=== PATIENT | female | born 1955 | race Caucasian/White ===

== ENCOUNTER 2016-09-04 19:54 | Emergency (ER) | payer MEDICAID ==
[2016-09-04 20:52] LABS: BASOPHILS 0.5 % (0-2); EOSINOPHILS 2.7 % (0-7); HEMATOCRIT 35.3 % (36.0-48.0); HEMOGLOBIN 11.6 g/dL (12-16); IMMATURE GRANULOCYTES 0.2 % (0-5); LYMPHOCYTES 33.5 % (15-50); MCH 31.7 pg (26.0-34.0); MCHC 32.9 g/dL (31.0-37.0); MCV 96.4 fL (80.0-100.0); MEAN PLATELET VOLUME 9.8 fL (7.4-10.4); MONOCYTES 6.1 % (2-11); PLATELET COUNT 242 10x3/uL (130-400); RBC 3.66 10x6/uL (4.00-5.40); RDW 12.9 % (11.5-14.5); WBC 6.3 10x3/uL (4.8-10.8)
[2016-09-04 21:11] LABS: APTT 28.5 SECONDS (22.8-39.4); INR 0.99 (0.85-1.17)
[2016-09-04 21:16] LABS: ALBUMIN 3.3 g/dL (3.4-5.0); ALKALINE PHOSPHATASE 61 U/L (46-116); ALT (SGPT) 19 U/L (10-68); BILIRUBIN - TOTAL 0.21 mg/dL (0.2-1.3); CALC OSMOLALITY 283 mosm/kg (275-300); CALCIUM 8.7 mg/dL (8.5-10.1); CARBON DIOXIDE 30.8 mmol/L (21.0-32.0); CHLORIDE - SERUM 105 mmol/L (98-107); GLUCOSE 103 mg/dL (74-106); POTASSIUM - SERUM 4.2 mmol/L (3.5-5.1); PROTEIN - SERUM 6.4 g/dL (6.4-8.2); SODIUM 142 mmol/L (136-145); UREA NITROGEN 15 mg/dL (7-18); eGFR NON AFRICAN AMERICAN 59 mL/min (90-120)
[2016-09-04 21:19] LABS: CREATINE KINASE 72 UL (21-215)
[2016-09-04 21:22] LABS: TROPONIN-I < 0.017 ng/mL (0.000-0.060)
== END 2016-09-04 23:30 | disposition home or self-care (01) ==
LOC: D.ER 19:54
PROVIDERS: Family Medicine
DX: S71.112A Laceration without foreign body, left thigh, initial encounter (principal); X58.XXXA Exposure to other specified factors, initial encounter; Y93.89 Activity, other specified; Y92.89 Other specified places as the place of occurrence of the external cause; I10 Essential (primary) hypertension

== ENCOUNTER 2016-09-24 21:39 | Emergency (ER) | payer MEDICAID | END 2016-09-25 01:18 | disposition home or self-care (01) | LOC: D.ER 21:39 | DX: S81.811A Laceration without foreign body, right lower leg, initial encounter (principal); S41.112A Laceration without foreign body of left upper arm, initial encounter; W20.8XXA Other cause of strike by thrown, projected or falling object, initial encounter; Y93.89 Activity, other specified; Y92.019 Unspecified place in single-family (private) house as the place of occurrence of the external cause; I10 Essential (primary) hypertension ==

== ENCOUNTER 2018-04-17 11:45 | Outpatient (CLI) | payer MEDICAID | END 2018-04-17 12:30 | disposition home or self-care (01) | LOC: D.CATH 11:45 | DX: I48.91 Unspecified atrial fibrillation (principal); Z53.9 Procedure and treatment not carried out, unspecified reason; Z01.812 Encounter for preprocedural laboratory examination ==

== ENCOUNTER 2018-05-06 08:00 | Outpatient (CLI) | payer MEDICAID | END 2018-05-06 09:00 | disposition home or self-care (01) | LOC: D.MAMMO 08:00 | DX: Z12.31 Encounter for screening mammogram for malignant neoplasm of breast (principal) ==

== ENCOUNTER 2018-06-03 08:00 | Outpatient (CLI) | payer MEDICAID | END 2018-06-03 09:00 | disposition home or self-care (01) | LOC: D.MAMMO 08:00 | DX: R92.8 Other abnormal and inconclusive findings on diagnostic imaging of breast (principal) ==

== ENCOUNTER 2018-12-17 14:00 | Outpatient (CLI) | payer OTHER, MEDICAID | END 2018-12-17 14:30 | disposition home or self-care (01) | LOC: D.MAMMO 14:00 | PROVIDERS: ATTEND Family Medicine | DX: R92.8 Other abnormal and inconclusive findings on diagnostic imaging of breast (principal) ==

== ENCOUNTER → 2018-12-30 07:37 | Outpatient (CLI) | payer OTHER, MEDICAID | END | disposition home or self-care (01) | LOC: D.MRI 07:37 | PROVIDERS: ATTEND Family Medicine | DX: N28.89 Other specified disorders of kidney and ureter (principal) ==

== ENCOUNTER → 2019-03-28 11:28 | Outpatient (CLI) | payer OTHER ==
--- NOTE | 2019-04-01 08:49 | EC ---
PATIENT:THERESA SEO DATE OF SERVICE: 03/28/19 SEX: F MEDICAL RECORD: [id number] DATE OF : 51 LOCATION:[facility] AGE OF PATIENT: 63 ADMISSION DATE: 03/28/19 REFERRING PHYSICIAN: INTERPRETING PHYSICIAN: JASMYN AZEVEDO MD ECHOCARDIOGRAM REPORT ECHO CHARGES 4 ECHO COMPLETE Date: 03/28/19 CLINICAL DIAGNOSIS: HEART MURMUR ECHOCARDIOGRAPHIC MEASUREMENTS (adult normal given) AC root (d.<3.7cm) 3.7 cm LV Septum d (<1.2 cm> 1.3 cm Valve Excursion 1.5 cm LV Septum (systole) 1.6 cm Left Atria (s.<4.0cm> 3.6 cm LVPW d(<1.2cm) 1.4 cm RV (d.<2.3cm) 3.4 cm LVPW (sytole) 1.8 cm LV diastole(<5.6CM) 4.7 cm MV E-F(>70mm/sec) cm LV systole 2.5 cm LVOT Diameter 1.9 cm MV exc.(>10mm) 1.7 cm Est.ejection fraction (50-75%) % DOPPLER: LVIT cm/sec A 66.0 cm/sec E 79.0 cm/sec LA cm/sec RVSP 35 mmHg LVOT 88 cm/sec AOP1/2T m/s Asc. Ao 105 cm/sec RVOT 73 cm/sec RA cm/sec PA 114 cm/sec AV Gradient Peak 4.37 mmHg AV Mean 2.29 mmHg AV Area 2.5 cm MV Gradient Peak 3.37 mmHg MV Mean 1.18 mmHg MV Area cm COMMENTS: Learning And Development Assistant: 2 TERESO MURPHY Financial Director: 3 Dr. Chaney TAPE# PACS Pericardial Effusion N DATE OF SERVICE: Adequate 2D, color flow imaging, spectral Doppler, and M-Mode LVH is present. LV internal dimension is normal. Wall motion is normal. EF is greater than or equal to 55%. Aortic valve is tricuspid. There is no evidence of stenosis by Doppler interrogation. Left atrium is normal at 3.6 cm. Mitral valve shows no prolapse. Trace MR. Right-sided chambers are grossly normal. Trace TR. ECHOCARDIOGRAM REPORT [id number] THERESA SEO TRANSINT:[id number] Voice Confirmation ID: [id number] DOCUMENT ID: [id number] JASMYN AZEVEDO MD at 0849 CC: [id number] DICTATION DATE: 03/29/19 1026 TELEPHONE INTERCEPTOR OPERATOR: 03/29/19 1139 DEP CLI 03/28/19 [place] [id number] [place] [id number]
== END | disposition home or self-care (01) ==
LOC: D.HCCECHO 11:28
PROVIDERS: ATTEND Internal Medicine Interventional Cardiology
DX: R01.1 Cardiac murmur, unspecified (principal)

== ENCOUNTER → 2019-04-07 08:26 | Outpatient (CLI) | payer OTHER ==
--- NOTE | ~2019-04-07 | ST ---
PATIENT:THERESA SEO MEDICAL RECORD: [id number] SEX: F LOCATION:[facility] ORDER #: ADMISSION DATE: 04/07/19 AGE OF PATIENT: 63 REFERRING PHYSICIAN: INTERPRETING PHYSICIAN: ELY OWUSU MD DATE OF SERVICE: 04/07/2019 PROCEDURE: Nuclear stress test. INDICATION: Angina, hypertension, hyperlipidemia, shortness of breath. She was exercised on standard Lexiscan protocol with 33 mCi of sestamibi injected at peak stress, 11 mCi used previously for rest images. FINDINGS: Gated SPECT reveals decreased ejection fraction at 45% with decreased thickening and brightening throughout the apical segment. SPECT imaging: Cardiolite was used as myocardial perfusion agent. There is a fixed perfusion defect at the apex compatible with previous apical myocardial infarction; however, there is reversible ischemia anteriorly. This includes the basal, mid, apical anterior segments. The degree of reversibility is moderate. The amount of myocardium involved between the defect is large. OVERALL IMPRESSION: This is an intermediate risk abnormal nuclear stress test. Reversible ischemia anteriorly. Fixed perfusion defect apically suggestive of hemodynamically significant coronary artery disease. TRANSINT:[id number] Voice Confirmation ID: [id number] DOCUMENT ID: [id number] ELY OWUSU MD CC: [id number] DICTATION DATE: 04/09/19 1605 CLEANER WALL: 04/10/19 0657 [facility] CLI 04/07/19 [facility] [address] [place] [address]
== END | disposition home or self-care (01) ==
LOC: D.HCCARDIO 03-31 10:00
PROVIDERS: ATTEND Internal Medicine Interventional Cardiology
DX: I20.9 Angina pectoris, unspecified (principal)

== ENCOUNTER 2019-04-17 11:25 | Outpatient (CLI) | payer OTHER ==
[~2019-04-17] VITALS: Ht 157.5 cm; Wt 54.5 kg
--- NOTE | ~2019-04-17 | HEMODYNAMI ---
PATIENT:THERESA SEO MEDICAL RECORD: [id number] : 51 [facility] ADMISSION DATE: 04/17/19 Generatedon:04/17/201914:33 Patient name: THERESA SEO Patient #: [id number] SSN: [id number] : 1955 Date of study: 04/17/2019 Page: Of Hemodynamic Procedure Report Patient Data Patient Demographics Procedure consent was obtained First Name: THERESA Gender: Female Last Name: RAYRAY : 1955 Middle Initial: BARON Age: 63 year(s) Patient #: [id number] Race: Unknown SSN: [id number] Additional ID: [id number] Contact details Address: [address] [place] [address] State: [place] City: [facility] Zip code: [address] Past Medical History Allergies: No known allergies Admission Admission Data Admission Date: 04/17/2019 Admission Time: 11:25 Arrival Date: 04/17/2019 Arrival Time: 0:00 Admit Source: Other Insurance Payor: Medicare [facility] #: [id number] Height (in.): 62 BSA: 1.55 (m2) Height (cm.): 157.48 BMI: 22.31 (kg/m2) Weight (lbs.): 122 Weight (kg.): 55.34 Lab Results Lab Result Date: 04/17/2019 Lab Result Time: 0:00 Biochemistry Name Units Result Min Max Creatinine mg/dl 1.1 --(--*-)-- 0.6 1.3 eGFR ml/min 53 *-(----)-- 90 120 NONAFRICAN CBC Name Units Result Min Max Hematocrit % 40.3 -*(----)-- 42 54 Hemoglobin g/dl 13.2 -*(----)-- 13.5 17.5 Procedure Procedure Types Cath Procedure Diagnostic Procedure LHC LHC w/Coronaries Sedation Charges Moderate Sedation up to 15 minutes Procedure Description Procedure Date Procedure Date: 04/17/2019 Procedure Start Time: 14:17 Procedure End Time: 14:31 Procedure Staff Name Function Jorge Asher MD Performing Physician Aleyda Burton RT Monitor Jo Jacinto RT Scrub Eduar Marinelli RN Nurse Procedure Data Cath Procedure Fluoroscopy Diagnostic fluoroscopy Total fluoroscopy Time: 1.5 time: 1.5 min min Diagnostic fluoroscopy Total fluoroscopy dose: 723 dose: 723 mGy mGy Contrast Material Contrast Material Type Amount (ml) Isovue 300 48 Entry Location Entry Primary Successful Side Size Upsize Upsize Entry Closure Succes sful Closure Location (Fr) 1 (Fr) 2 (Fr) Remarks Device Remarks Femoral Right 5 Fr Exoseal artery Estimated blood loss: 10 ml Diagnostic catheters Device Type Used For End Catheter Placement MULTIPACK JL 4.0 5Fr Procedure catheter MULTIPACK 3DRC 5Fr Procedure catheter MULTIPACK Pigtail 5 Fr Ventriculography catheter Procedure Complications No complications Procedure Medications Medication Administration Route Dosage 0.9% NaCl I.V. 100 ml/hr Oxygen etCO2 Nasal cannula 2 l/min Heparin Flush Bag added to field 2 bags (1000units/500ml NS) Lidocaine 2% added to field 20 Radial Cocktail added to field 1 syringe (Verapamil 2mg/Nitro 400mcg/Heparin 1500units) Versed I.V. 1 mg Fentanyl I.V. 50 mcg Versed I.V. 1 mg Fentanyl I.V. 50 mcg Hemodynamics Rest BSA: 1.55 (m2) HGB: 13.2 (g/dl) O2 Consumption: Estimated: 130.43 (ml/min) O2 Co nsumption indexed: Estimated:84.15 (ml/min/m) Heart Rate: 45 (bpm) Pressure Samples Time Site Value (mmHg) Purpose Heart Use Rate(bpm) 14:28 LV 111/14,12 Snapshot 88 14:28 AO 111/65(84) Pullback 82 Gradients Valve Time Site Site 2 Mean SEP/DFP Peak To Heart Use 1 (mmHg) (sec/min) Peak Rate (mmHg) (bpm) Aortic 14:28 LV AO 6 10 82 111/65(84) Calculations Valve P-P Mean Valve Index Valve Source Name Gradient Area Flow (cm2) Aortic 6 6 Snapshots Pre Cath Intra NCS Post Cath Vital Signs Time Heart Resp SPO2 etCO2 NIBP (mmHg) Rhythm Pain Sedation Rate (ipm) (%) (mmHg) Status Level (bpm) 13:50:21 44 17 91 0 140/86(115) NSR 0 (11) 10(A) , No pain 13:54:33 80 17 88 0 138/90(111) NSR 0 (11) 10(A) , No pain 13:58:47 79 15 88 0 134/83(110) NSR 0 (11) 10(A) , No pain 14:02:58 79 16 89 0 127/82(105) NSR 0 (11) 10(A) , No pain 14:07:06 81 27 88 0 131/85(102) NSR 0 (11) 10(A) , No pain 14:11:14 84 13 94 33.9 129/84(107) NSR 0 (11) 10(A) , No pain 14:15:24 83 12 93 35.4 123/74(103) NSR 0 (11) 10(A) , No pain 14:19:32 79 17 94 34.6 116/75(90) NSR 0 (11) 9(A) , No pain 14:23:40 78 20 93 28.6 106/64(88) NSR 0 (11) 9(A) , No pain 14:27:42 84 15 92 39.9 111/69(88) NSR 0 (11) 10(A) , No pain 14:31:45 82 10 93 39.2 110/73(89) NSR 0 (11) 10(A) , No pain Medications Time Medication Route Dose Verified Delivered Reason Notes E ffectiveness by by 14:09:56 0.9% NaCl I.V. 100 Eduar Eduar Per ml/hr Yves Marinelli physician RN RN 14:10:05 Oxygen etCO2 2 l/min Eduar Eduar for low 02 Nasal Lorigan Lorigan sats cannula RN RN 14:10:19 Heparin Flush added 2 bags Eduar Eduar used for Bag to Lorigan Yves procedure (1000units/500ml field RN RN NS) 14:10:36 Lidocaine 2% added 20ml Eduar Eduar for local to vial Lorigan Lorigan anesthetic field RN RN 14:10:56 Radial Cocktail added 1 Eduar Eduar used for (Verapamil to syringe Lorigan Lorigan procedure 2mg/Nitro field RN RN 400mcg/Heparin 1500units) 14:18:11 Versed I.V. 1 mg Eduar Eduar for Lorigan Lorigan sedation RN RN 14:18:21 Fentanyl I.V. 50 mcg Eduar Eduar for Lorigan Lorigan sedation RN RN 14:23:13 Versed I.V. 1 mg Eduar Deuar for Lorigan Lorigan sedation RN RN 14:23:19 Fentanyl I.V. 50 mcg Eduar Eduar for Lorigan Lorigan sedation RN car wash supervisor Log Time Note 12:19:03 Arrival Date: 04/17/2019 12:00:00 AM 12:19:18 Admit Source: Other 12:19:24 Insurance Payor : Medicare 13:25:58 Procedure Status Elective Heart Cath (OP). 13:25:59 Aleyda Burton RT(R) sent for patient. Start room use. 13:26:00 Time tracking: Regular hours (M-F 7:00 - 5:00) 13:26:03 Plan of Care:Hemodynamics will remain stable., Cardiac rhythm will remain stable., Comfort level will be maintained., Respiratory function will remain adequate., Patient/ family verbilizes understanding of procedure., Procedure tolerated without complication., Recovers from procedure without complications.. 13:26:05 Signed procedure consent form obtained from patient. 13:26:33 H&P Date Dictated: 03/20/2019 Within 30 days and on chart., H&P Addendum completed by physician on day of procedure. (MUST COMPLETE FOR ALL OUTPATIENTS). 13:26:38 Patient allergic to No known allergies 13:26:52 Patient Weight : 122 lbs 13:26:56 Patient Height : 62 inches 13:28:16 Lab Result : Creatinine 1.1 mg/dl 13:28:16 Lab Result : eGFR NONAFRICAN 53 ml/min 13:28:16 Lab Result : Hemoglobin 13.2 g/dl 13:28:16 Lab Result : Hematocrit 40.3 % 13:32:00 Risk of Mortality: .8 13:32:03 Risk of blood transfusion: .9 13:32:06 Risk of ISABELLA: 1.8 13:32:21 Patient received from Pre/Post Procedure Room to [facility] 3 Alert and oriented. Tansferred to table in Supine position. 13:32:21 Warm blankets applied, and miranda hugger turned on for patient comfort. 13:32:22 Correct patient and procedure confirmed by team. 13:32:22 ECG and BP/O2 sat monitors applied to patient. 13:49:06 Vital chart was started 13:49:08 Baseline sample Acquired. 13:49:14 Rhythm: sinus rhythm 13:49:16 Full Disclosure recording started 13:49:17 Pre-procedure instructions explained to patient. 13:49:23 Family in waiting room. 13:49:25 Patient NPO since Midnight. 13:49:28 Was the patient premedicated? Yes 13:49:32 Is patient on blood thinner?No 13:49:36 Patient diabetic? No. 13:49:50 Snore? Yes 13:49:56 Sleep apnea? No 13:50:12 Airway obstruction? Yes COPD, Emphazema 13:50:16 Dentures? No ? 13:50:22 Patient pain scale 0/10 ?. 13:50:31 IV patent on arrival in left hand with 0.9% NaCl at O. 13:51:05 Lab results completed and on chart. 13:51:47 Stress Test: yes; N/A ? 13:51:51 Right Radial & Right Groin area was prepped with chlora-prep and draped in sterile fashion 13:51:52 Alarms reviewed by R. N. 13:51:53 Sharps counted by scrub and verified by R.N. 13:51:55 Physician paged 13:56:09 Physician arrived 14:02:11 Zero performed for pressure channel P1 14:09:24 3a) 45-59 Moderately reduced kidney function. 14:09:28 --------ALL STOP TIME OUT------ 14:09:29 Final Timeout: patient, procedure, and site verified with staff and physician. All members of the team are in agreement. 14:09:38 Right Radial & Right Groin site verified by team. 14:09:42 Fire Safety Assessment: A--An alcohol-based skin anteseptic being used preoperatively., C--Open oxygen or nitrous oxide is being used., D--An ESU, laser, or fiber-optic light is being used. 14:09:47 Physical assessment completed. ASA score P 3 - A patient with severe systemic disease as per Jorge Asher MD. 14:09:56 0.9% NaCl 100 ml/hr I.V. was administered by Eduar Marinelli RN; Per physician; Verbal order read back and verified. 14:10:05 Oxygen 2 l/min etCO2 Nasal cannula was administered by Eduar Marinelli RN; for low 02 sats; Verbal order read back and verified. 14:10:19 Heparin Flush Bag (1000units/500ml NS) 2 bags added to field was administered by Eduar Marinelli RN; used for procedure; Verbal order read back and verified. 14:10:26 Maximum allowable contrast dose (3.7 X eGFR X 0.75)147 ml. 14:10:32 Sedation plan: IV Moderate Sedation Medication:Versed, Fentanyl 14:10:36 Lidocaine 2% 20ml vial added to field was administered by Eduar Marinelli RN; for local anesthetic; Verbal order read back and verified. 14:10:38 Use device set Radial Dx or PCI 14:10:41 ACIST Syringe (73812) opened to sterile field. 14:10:41 Medline Cath Pack ([id number]) opened to sterile field. 14:10:42 Bag Decanter (2002S) opened to sterile field. 14:10:42 ACIST Hand Control (03451) opened to sterile field. 14:10:43 ACIST Manifold (59733) opened to sterile field. 14:10:44 Tegaderm 4 x 4 (1626W) opened to sterile field. 14:10:50 MBrace Wrist Support (000712179) opened to sterile field. 14:10:56 Radial Cocktail (Verapamil 2mg/Nitro 400mcg/Heparin 1500units) 1 syringe added to field was administered by Eduar Marinelli RN; used for procedure; Verbal order read back and verified. 14:11:02 MONICOALD Guide Wire (586-102) opened to sterile field. 14:16:51 Procedure started. 14:17:15 Local anesthetic to right radial artery with Lidocaine 2% by Jorge Asher MD.INITIAL ACCESS ONLY 14:18:11 Versed 1 mg I.V. was administered by Eduar Marinelli RN; for sedation; Verbal order read back and verified. 14:18:21 Fentanyl 50 mcg I.V. was administered by Eduar Marinelli RN; for sedation; Verbal order read back and verified. 14:23:13 Versed 1 mg I.V. was administered by Eduar Marinelli RN; for sedation; Verbal order read back and verified. 14:23:19 Fentanyl 50 mcg I.V. was administered by Eduar Marinelli RN; for sedation; Verbal order read back and verified. 14:23:21 A 5 Fr sheath was inserted into the Right Femoral artery 14:24:17 J wire advanced. 14:24:32 A MULTIPACK JL 4.0 5Fr catheter was advanced over the wire and used for Procedure. 14:24:33 DIAGNOSTIC Multipack 5Fr catheter set (OP1692) opened to sterile field. 14:25:18 LCA angiography performed. 14:26:49 Catheter removed. 14::58 A MULTIPACK 3DRC 5Fr catheter was advanced over the wire and used for Procedure. 14:27:09 RCA angiography performed. 14:27:13 Catheter removed. 14:27:27 A MULTIPACK Pigtail 5 Fr catheter was advanced over the wire and used for Ventriculography. 14:27:38 LV gram done using DUMONT 14::47 EF : 55 % 14:28:48 LV hemodynamics recorded. 14:28:49 Catheter removed. 14:29:18 EXOSEAL 5Fr (EX500) opened to sterile field. 14:29:31 Sheath removed intact; hemostasis achieved with Exoseal to the Right Femoral artery. 14:29:35 Procedure ended.(Physican Out) 14:29:47 Fluoroscopy time 01.50 minutes. 14:29:56 Fluoroscopy dose: 723 mGy 14:29:56 Flurop Dose total: 723 14:30:08 Dose Area Product 91 mGy/cm. 14:30:25 Contrast amount:Isovue 300 48ml. 14:30:28 Maximum allowable dose exceeded? No. 14:30:29 Sharps counted by scrub and verified by R.N. 14:30:32 Reno band inflated with 10cc of air. 14:30:34 Insertion/operative site no bleeding no hematoma. 14:30:40 Post Procedure Pulses reassessed and unchanged 14:30:44 Post-procedure physical assessment completed. ASA score P 2 - A patient with mild systemic disease as per Jorge Asher MD. 14:30:47 Post procedure rhythm: unchanged. 14:30:51 Estimated blood loss: 10 ml 14:30:53 Post procedure instruction explained to patient.Patient verbalizes understanding. 14:31:01 Procedure type changed to Cath procedure, Diagnostic procedure, LHC, [facility] w/Coronaries, Sedation Charges, Moderate Sedation up to 15 minutes 14:31:01 Procedure and supply charges have been captured, reviewed, submitted and are correct. 14:31:20 Procedure Complication : No complications 14:31:22 Vital chart was stopped 14:31:26 [facility] Findings: mild to moderate CAD (<70%) 14:31:33 Report given to Pre/Post Procedure Room. 14:31:36 Patient transfered to Pre/Post Procedure Room with Stretcher. 14:31:38 Procedure ended. 14:31:38 Full Disclosure recording stopped 14:31:41 End room use (Document Last) 14:32:11 End room use (Document Last) 14:32:55 End room use (Document Last) Device Usage Item Name Manufacture Quantity Catalog Hospital Part Current Minimal Lot# / Number Charge Number Stock Stock Serial# Code ACIST Acist 1 30822 798668 335583 990175 20 Syringe Medical (08777) Systems Inc Medline Medline 1 [id number] 571712 47796 519321 5 Cath Pack ([id number]) Bag Microtek 1 2001S 148360 93380 133302 5 Decanter Medical Inc. () ACIST Hand Acist 1 41011 455108 278282 111467 5 Control Medical (02982) Systems Inc ACIST Acist 1 56326 076085 866333 750426 5 Manifold Medical (38363) Systems Inc Tegaderm 4 3M 1 1626W 903793 532170 502272 5 x 4 (1626W) MBrace Advanced 1 140-0250-00 604571 09400 363497 5 Wrist Vascular Support Dynamics ([id number]) EMERALD Cardinal 1 458-164 350135 982061 099588 5 Guide Wire Health (600-856) MULTIPACK Cardinal 1 937158 5 JL 4.0 5Fr Health catheter DIAGNOSTIC Cardinal 1 [id number] 040572 24638 669759 30 Multipack Health 5Fr catheter set (IZ7946) MULTIPACK Cardinal 1 122627 5 3DRC 5Fr Health catheter MULTIPACK Cardinal 1 663723 5 Pigtail 5 Health Fr catheter EXOSEAL 5Fr Cardinal 1 EX500 955320 989140 891999 10 (EX500) Health Signature Audit Sutton Stage Time Signature Unsigned Intra-Procedure 04/17/2019 Aleyda Burton 2:32:11 PM RT(R) Intra-Procedure 04/17/2019 Eduar 2:32:55 PM Yves BLANTON Intra-Procedure 04/17/2019 Jorge Jordan 2:33:19 PM Medhat [facility] [address] [place] [address]
[2019-04-17] MEDS ORDERED: PACERONE200 MG PO (12:00)
[2019-04-17] MEDS ORDERED: ADDERALL XR 1010 M1 PO (12:00)
[2019-04-17] MEDS ORDERED: HYDROCODON-ACE1 EA10 PO (12:01)
[2019-04-17] MEDS ORDERED: COMBIGAN OPHT DR5 ML EACH EYE (12:04)
[2019-04-17] MEDS ORDERED: PAXIL40 MG PO (12:04)
[2019-04-17] MEDS ORDERED: SINGULAIR10 MG PO ×2 (12:05)
[2019-04-17] MEDS ORDERED: ZESTRIL10 MG PO (12:05)
[2019-04-17] MEDS ORDERED: SYMBICORT 16010.2 GM INH (12:06)
[2019-04-17] MEDS ORDERED: ADDERALL 10 MG10 MG PO (12:07)
[2019-04-17 12:20] VITALS: BP 138/82; Ht 157.5 cm; Wt 54.5 kg
[2019-04-17 12:25] LABS: BASOPHILS 0.4 % (0-2); EOSINOPHILS 1.9 % (0-7); HEMATOCRIT 40.3 % (36.0-48.0); HEMOGLOBIN 13.2 g/dL (12-16); IMMATURE GRANULOCYTES 0.2 % (0-5); LYMPHOCYTES 21.3 % (15-50); MCHC 32.8 g/dL (31.0-37.0); MCV 97.8 fL (80.0-100.0); MEAN PLATELET VOLUME 9.8 fL (7.4-10.4); MONOCYTES 6.1 % (2-11); NEUTROPHILS 70.1 % (40-80); PLATELET COUNT 286 10x3/uL (130-400); RBC 4.12 10x6/uL (4.00-5.40); RDW 13.5 % (11.5-14.5); WBC 5.3 10x3/uL (4.8-10.8)
[2019-04-17 12:33] LABS: ANION GAP 11.2 mmol/L (8-16); CALCIUM 9.3 mg/dL (8.5-10.1); CARBON DIOXIDE 28.7 mmol/L (21.0-32.0); CHOL - HDL RATIO 2.8 ratio (2.3-4.1); CREATININE - SERUM 1.1 mg/dL (0.6-1.3); LDL-HDL RATIO 1.7 ratio (1.5-3.5); POTASSIUM - SERUM 3.9 mmol/L (3.5-5.1)
--- NOTE | 2019-04-17 14:45 | NUR ---
PT ARRIVED BY STRETCHER. NO FAMILY WITH PT TODAY. PLACED ON MONITORS. ASSESSMENT COMPLETED. VSS. CALL LIGHT WITHIN REACH.
--- NOTE | 2019-04-17 15:00 | NUR ---
RIGHT GROIN DRESSING C/D/I. NO S/S OF HEMATOMA NOTED. VSS. CALL LIGHT WITHIN REACH.
--- NOTE | 2019-04-17 15:30 | NUR ---
RIGHT GROIN DRESSING C/D/I. NO S/S OF HEMATOMA NOTED. CALL LIGHT WITHIN REACH. VSS. PT HEAD OF BED AT 30 DEGREES. SET UP WITH SANDWICH TRAY AND DRINK. DENIES NAUSEA/PAIN AT THIS TIME.
--- NOTE | 2019-04-17 16:09 | NUR ---
RIGHT GROIN DRESSING C/D/I. NO S/S OF HEMATOMA NOTED. CALL LIGHT WITHIN REACH. VSS AT THIS TIME. PT TOLERATED FOOD AND DRINK. DENIES NAUSEA/PAIN. PIV D/C'D WITH CATH TIP INTACT. TOLERATED WELL. PT INSTRUCTED TO GET UP AND DRESSED.
--- NOTE | 2019-04-17 16:25 | NUR ---
PT DRESSED. RIGHT GROIN DRESSING C/D/I. PT AMBULATED TO RESTROOM. VOIDED WITHOUT DIFFICULTY. DISCUSSED DISCHARGE INSTRUCTIONS WITH PT. SHE VOICED UNDERSTANDING. BANDAID TO RIGHT WRIST C/D/I. NO S/S OF HEMATOMA NOTED. WAITING ON RIDE.
--- NOTE | 2019-04-17 16:35 | NUR ---
PT TAKEN OUT TO VEHICLE BY WHEELCHAIR. NO S/S OF DISTRESS NOTED. ALL BELONGINGS AND PAPERWORK IN HAND.
--- NOTE | 2019-04-18 13:04 | OP ---
PATIENT NAME: THERESA SEO MEDICAL RECORD: [id number] :51 LOCATION:[facility] ADMISSION DATE: SURGEON: JASMYN AZEVEDO MD DATE OF OPERATION: 04/17/2019 PROCEDURES: Left heart catheterization, selective coronary angiography, right femoral artery approach. CATHETERS: 5-Angolan sheath, 5/4 left and right Annabelle, 5/4 pig. The procedure was well tolerated. The patient returned to the maldonado, sheath removed. ExoSeal device placed. FINDINGS: Left ventriculography in 30-degree DUMONT view: Normal wall motion and normal systolic function. CORONARY ANATOMY: LEFT MAIN: Left main is free of disease. LAD: Free of disease in the diagonal system. CIRCUMFLEX: Free of disease in the marginal system. RIGHT CORONARY ARTERY: Dominant artery, gives rise to PDA, free of disease. IMPRESSION: Normal LV systolic function. Normal coronary anatomy. TRANSINT:[id number] Voice Confirmation ID: [id number] DOCUMENT ID: [id number] JASMYN AZEVEDO MD at 1304 CC: [id number] DICTATION DATE: 04/17/19 1446 FAMILY LAW SPECIALIST: 04/17/192123 DEP CLI 04/17/19 [facility] [address] [place] [address]
== END 2019-04-17 16:35 | disposition home or self-care (01) ==
LOC: D.CATH 11:25
PROVIDERS: ATTEND Internal Medicine Interventional Cardiology
DX: I48.91 Unspecified atrial fibrillation (principal); I10 Essential (primary) hypertension; R01.1 Cardiac murmur, unspecified; I20.9 Angina pectoris, unspecified; Z72.0 Tobacco use